=== PATIENT | male | born 1970 | race Caucasian/White ===

== ENCOUNTER 2018-11-03 07:09 | Emergency (ER) | payer MEDICAID ==
[2018-11-03] MEDS: SOD CHLORIDE 0.9% 500 ML IV (07:54)
[2018-11-03] MEDS: morphine 4 MG/ML VIAL IV (07:54)
[2018-11-03] MEDS: ONDANSETRON 4 MG INJ IV (07:55)
== END 2018-11-03 09:35 | disposition home or self-care (01) ==
LOC: E/R 07:09
DX: N40.1 Benign prostatic hyperplasia with lower urinary tract symptoms (principal); R33.8 Other retention of urine
CPT/HCPCS: 36415; 80053; 81001; 83690; 85025; 85610; 85730; 96374; 96375; 99284-25

== ENCOUNTER 2018-11-03 19:48 | Emergency (ER) | payer MEDICAID | END 2018-11-03 20:00 | disposition home or self-care (01) | LOC: E/R 19:48 | DX: R33.9 Retention of urine, unspecified (principal) | CPT/HCPCS: 51702; 99283-25 ==